=== PATIENT | male | born 1975 | race African-American/Black ===

== ENCOUNTER 2016-11-06 11:56 | Emergency (ER) | payer MEDICAID, MEDICARE ==
[~2016-11-06] VITALS: Ht 170.2 cm; Wt 105.0 kg
[2016-11-06] MEDS ORDERED: KETOROLAC 30MG/ML VIAL IM ONE (13:45)
[2016-11-06 14:26] VITALS: BP 128/76
[2016-11-06] MEDS ORDERED: CEFTRIAXONE SODIUM 250 MG/VIAL IM ONE (15:00)
[2016-11-06] MEDS ORDERED: AZITHROMYCIN 500 MG TABLET PO ONE (15:00)
== END 2016-11-06 16:18 | disposition home or self-care (01) ==
LOC: ER 11:56
DX: N45.3 Epididymo-orchitis (principal); F12.10 Cannabis abuse, uncomplicated
CPT/HCPCS: 76870; 93976; 96372; 99284; J0696; J1885; Z7610